=== PATIENT | female | born 1995 | race African-American/Black ===

== ENCOUNTER 2017-05-13 20:24 | Emergency (ER) | payer OTHER ==
[~2017-05-13] VITALS: Ht 152.4 cm; Wt 61.2 kg
--- NOTE | 2017-05-13 20:27 | NUR ---
PT JAKI TO ER BED 14 ACCOMPANIED BY PD. HERE FOR MEDICAL CLEARANCE PRIOR TO BOOKING. AGITATED, CURSING STAFF. PLACED ON MONITOR. AWAITING MD WOODY.
[2017-05-13] MEDS ORDERED: diphenhydrAMINE HCL 50 MG/ML VIAL IM ONE (20:30)
[2017-05-13] MEDS ORDERED: LORAZEPAM INJ 2 MG/ML VIAL IM ONE ×2 (20:30→21:00)
[2017-05-13] MEDS ORDERED: HALOPERIDOL LACTATE INJ 5 MG/ML VIAL IM ONE (20:30)
[2017-05-13] MEDS ORDERED: diphenhydrAMINE HCL 50 MG/ML VIAL ONE (20:30)
[2017-05-13] MEDS ORDERED: LORAZEPAM INJ 2 MG/ML VIAL ONE ×2 (20:31→20:41)
[2017-05-13] MEDS ORDERED: HALOPERIDOL LACTATE INJ 5 MG/ML VIAL ONE (20:31)
--- NOTE | 2017-05-13 20:31 | NUR ---
DR WALTER AT BEDSIDE FOR EVAL.
--- NOTE | 2017-05-13 20:47 | NUR ---
PT STILL AGITATED, CONTINUESLY YELLING. DR JOSE ANGEL BAÑUELOS. MEDICATED ORDERED.
--- NOTE | 2017-05-13 23:30 | NUR ---
PT SLEEPING. ON MONITOR W. STABLE VITALS. PD AT BEDSIDE. REPORT GIVEN TO CHARGE NURSE DENNIS FOR ROBBIE.
--- NOTE | 2017-05-14 04:53 | NUR ---
pt ok to discharge per dr dangelo. Patient discharged in custody of [facility] in stable condition. Written and verbal after care instructions given. Patient verbalizes understanding of instruction. pt ambulatory with a steady gait
[2017-05-14 05:01] VITALS: BP 109/71
== END 2017-05-14 04:53 | disposition home or self-care (01) ==
LOC: ER 20:27
DX: Z02.89 Encounter for other administrative examinations (principal)
CPT/HCPCS: 96372 ×4; 99284; A4606; J1200; J1630; J2060 ×2; Z7610